=== PATIENT | male | born 1950 | race Caucasian/White ===

== ENCOUNTER 2023-03-10 12:56 | Emergency (ER) | payer MEDICARE, OTHER ==
[~2023-03-10] VITALS: Ht 175.3 cm; Wt 90.7 kg
[2023-03-10] MEDS ORDERED: CYCLOBENZAPRINE 10 MG TABLET PO ONE (13:30)
[2023-03-10] MEDS ORDERED: KETOROLAC TROMETHAMINE INJ 30 MG/ML VIAL IM ONE (13:30)
[2023-03-10] MEDS ORDERED: CYCLOBENZAPRINE 10 MG TABLET ONE (13:31)
[2023-03-10] MEDS ORDERED: KETOROLAC TROMETHAMINE INJ 30 MG/ML VIAL ONE (13:31)
[2023-03-10] MEDS ORDERED: KETO10TA2 PO (14:42)
[2023-03-10] MEDS ORDERED: CYCL5TAB PO (14:42)
[2023-03-10 14:58] VITALS: BP 142/73; TEMP 98.2; O2SAT 98
== END 2023-03-10 14:58 | disposition home or self-care (01) ==
LOC: ER 13:07
DX: M79.10 Myalgia, unspecified site (principal); I10 Essential (primary) hypertension
CPT/HCPCS: 99283; 96372; J1885